=== PATIENT | male | born 1980 | race Caucasian/White ===

== ENCOUNTER 2018-11-13 08:06 | Day surgery (SDC) | payer BC ==
[~2018-11-13 08:06] MED LIST: Lactated Ringers 1,000 ML IV SCH
[2018-11-13] MEDS ORDERED: Lidocaine 1% PF 2 ML SDV INJECT ONE (08:07)
[2018-11-13] MEDS ORDERED: Propofol 200 MG/20 ML SDV IV ONE (08:07)
--- NOTE | 2018-11-13 09:26 | PCM.OPNOTE ---
- General Post-Op/Procedure Note Date of Surgery/Procedure: 11/13/18 Operative Procedure(s): c scope with bx Findings: transverse colon polyp sigmoid colon polyp x2 Pre Op Diagnosis: screening Post-Op Diagnosis: transverse colon polyp. sigmoid colon polyp x2 Anesthesia Technique: MAC Primary Surgeon: Rod Carias Anesthesia Provider: Shauna Paul Pathology: transverse colon polyp sigmoid colon polyp x2 Complications: None Condition: Good Free Text/Narrative:: see dictation
--- NOTE | 2018-11-13 10:09 | PCM.OPNOTE ---
- General Post-Op/Procedure Note Date of Surgery/Procedure: 11/13/18 Operative Procedure(s): rectal polyp. normal colon and terminal ileum Findings: rectal polyp otherwise normal terminal ileum and colonic mucosa Pre Op Diagnosis: hx of bleeding and diarrhea Post-Op Diagnosis: rectal polyp Anesthesia Technique: MAC Primary Surgeon: Rod Carias Anesthesia Provider: Zhou Resendez Pathology: rectal polyp random bx of terminal ileum and colon Complications: None Condition: Good Free Text/Narrative:: see dictation
[2018-11-13 10:41] VITALS: BP 115/71; PULSE 68
--- NOTE | 2018-11-13 15:44 | OR ---
DATE OF OPERATION: 11/13/2018 SURGEON: Rod Carias MD PROCEDURE PERFORMED: Colonoscopy with cold forceps biopsy. PREOPERATIVE DIAGNOSIS: Personal history of diarrhea and blood per rectum. POSTOPERATIVE DIAGNOSIS: Normal terminal ileum and rectal polyp, otherwise normal colonic mucosa. INDICATIONS FOR PROCEDURE: This is a 38-year-old white male, who is referred with a history of crampy abdominal pain, diarrhea, and bleeding. He was offered and accepted colonoscopy to rule out inflammatory bowel disease. DESCRIPTION OF OPERATION: After an excellent IV sedation was administered, digital rectal exam was performed. No marked abnormality was noted. Flexible colonoscope was inserted and advanced to the cecum. The terminal ileum was intubated and advanced. Endoscope was advanced approximately 5 cm. The following findings were noted: Terminal ileum was unremarkable, random biopsies were taken. Ascending colon unremarkable, random biopsies were taken. Transverse colon unremarkable, random biopsies were taken. Descending colon unremarkable, random biopsies were taken. Sigmoid unremarkable, random biopsies were taken, and at the rectum, there was a small 3 mm polyp, appeared to be hyperplastic, biopsied and submitted in a separate container, results by letter. The patient tolerated the procedure well. /[id number] /MODL
== END 2018-11-13 10:48 | disposition home or self-care (01) ==
LOC: FB.SDS 08:06
PROVIDERS: ATTEND Surgery
DX: K62.1 Rectal polyp (principal); Z83.79 Family history of other diseases of the digestive system
CPT/HCPCS: 45380; 88305; J2001; J2704; J7120